=== PATIENT | female | born 1995 ===

== ENCOUNTER 2020-07-19 12:24 | Emergency (ER) | payer SELFPAY ==
[2020-07-19 12:41] VITALS: BP 125/70
[2020-07-19] MEDS ORDERED: diphenhydrAMINE 25 MG CAP PO ONE (13:28)
[2020-07-19] MEDS ORDERED: METOCLOPRAMIDE 10 MG TAB PO ONE (13:28)
[2020-07-19] MEDS ORDERED: SUMAtriptan SUCCINATE 25 MG TAB PO SCH (14:00)
--- NOTE | 2020-07-19 14:16 | Emergency Department Report ---
ED Headache HPI - General Chief Complaint: Headache Stated Complaint: HEADACHE X2WKS Time Seen by Provider: 07/19/20 13:14 - History of Present Illness Initial Comments: Patient is a 25-year-old female presents emergency room with complaints of a right temporal headache that began 2 weeks ago. She states that she has been having a daily headache. She has associated nausea. She states that she has been taking Excedrin, Tylenol, Goody's powder which help relieve the headache but then the headache returns. She denies any nausea, vomiting, fever, diarrhea, vision changes, neck stiffness, numbness, weakness, rhinorrhea, sinus pressure. Patient states that she has a past medical history of migraines which she has had since 13 years old. She states that she previously used to take Topamax but has not taken it in approximately 10 years. She states that this headache feels similar to previous migraines. She denies any sick contacts or recent travel. Allergies/Adverse Reactions: Allergies No Known Allergies Allergy (Unverified 07/19/20 12:41) Home Medications: Ambulatory Orders SUMAtriptan SUCCINATE [Imitrex] 25 mg PO Q3HR PRN #12 tablet 07/19/20 ED Review of Systems ROS: Stated complaint: HEADACHE X2WKS Other details as noted in HPI Comment: All other systems reviewed and negative ED Past Medical Hx - Past Medical History Previous Medical History?: Yes Hx Headaches / Migraines: Yes Hx Asthma: Yes - Surgical History Past Surgical History?: No - Medications Home Medications: Home Medications Medication Instructions Recorded Confirmed Last Taken Type SUMAtriptan SUCCINATE [Imitrex] 25 mg PO Q3HR PRN #12 tablet 07/19/20 Unknown Rx ED Physical Exam - General Limitations: No Limitations General appearance: alert, in no apparent distress - Head Head exam: Present: atraumatic, normocephalic - Eye Eye exam: Present: normal appearance, PERRL, EOMI Pupils: Present: normal accommodation - ENT ENT exam: Present: normal orophraynx, mucous membranes moist, TM's normal bilaterally, normal external ear exam, other (no sinus ttp bilaterally) - Neck Neck exam: Present: full ROM. Absent: meningismus - Respiratory Respiratory exam: Present: normal lung sounds bilaterally. Absent: respiratory distress, wheezes, rales, rhonchi, stridor, chest wall tenderness, accessory muscle use, decreased breath sounds, prolonged expiratory - Cardiovascular Cardiovascular Exam: Present: regular rate, normal rhythm, normal heart sounds. Absent: systolic murmur, diastolic murmur, rubs, gallop - Neurological Exam Neurological exam: Present: alert, oriented X3, CN II-XII intact, normal gait. Absent: motor sensory deficit - Psychiatric Psychiatric exam: Present: normal affect, normal mood - Skin Skin exam: Present: warm, dry, intact ED Course Vital Signs 07/19/20 12:40 Temperature 98.9 F Pulse Rate 68 Respiratory 18 Rate Blood Pressure 125/70 O2 Sat by Pulse 98 Oximetry ED Medical Decision Making - Medical Decision Making Patient is a 25-year-old female presents emergency room with complaints of a right temporal headache that began 2 weeks ago. She states that she has been having a daily headache. She has associated nausea. She states that she has been taking Excedrin, Tylenol, Goody's powder which help relieve the headache but then the headache returns. She denies any nausea, vomiting, fever, diarrhea, vision changes, neck stiffness, numbness, weakness, rhinorrhea, sinus pressure. Patient states that she has a past medical history of migraines which she has had since 13 years old. She states that she previously used to take Topamax but has not taken it in approximately 10 years. She states that this headache feels similar to previous migraines. She denies any sick contacts or recent travel. Vitals are normal. No focal neuro deficits on exam. Patient given Imitrex, Reglan, Benadryl in the emergency department and headache improved. She began to feel nauseous after taking the oral medications, patient given IM Zofran and had no episodes of vomiting while in the emergency department and nausea resolved. She was able to tolerate p.o. intake without difficulty. Symptoms and examination appear most consistent with migraine headache given that it is located in one temporal region and she has had the same headaches with previous migraines. pt will be referred to PCP for reexamination. Patient given prescription for Imitrex. Advised patient Please take medication as prescribed as needed. Increase your water intake. Follow-up with your primary care doctor. Return to emergency room for any new or worsening symptoms. - Differential Diagnosis Migraine headache, cluster headache, tension headache, ICH, SAH, sinusitis Critical care attestation.: If time is entered above; I have spent that time in minutes in the direct care of this critically ill patient, excluding procedure time. ED Disposition Clinical Impression: Headache Qualifiers: Headache type: unspecified Headache chronicity pattern: acute headache Intractability: not intractable Qualified Code(s): R51.9 - Headache, unspecified Disposition: DC- TO HOME OR SELFCARE Is pt being admited?: No Does the pt Need Aspirin: No Condition: Stable Instructions: Migraine Headache (ED) Additional Instructions: Please take medication as prescribed as needed. Increase your water intake. Follow-up with your primary care doctor. Return to emergency room for any new or worsening symptoms. Prescriptions: SUMAtriptan SUCCINATE [Imitrex] 25 mg PO Q3HR PRN #12 tablet PRN Reason: headache Referrals: TABATHA WILL MD [Staff Physician] - 2-[address] [facility] [Provider Group] - 2-3 Days Forms: Work/School Release Form(ED) Time of Disposition: 14:44 Print Language: POLISH
[2020-07-19] MEDS ORDERED: ONDANSETRON 4 MG/2 ML INJ IM ONE (14:48)
== END 2020-07-19 16:00 | disposition home or self-care (01) ==
LOC: ED 12:24
DX: R51.9 Headache, unspecified (principal); J45.909 Unspecified asthma, uncomplicated; G43.909 Migraine, unspecified, not intractable, without status migrainosus
CPT/HCPCS: 96372; 99282; J2405